=== PATIENT | male | born 1990 | race Two or more races ===

== ENCOUNTER 2018-06-27 22:29 | Emergency (ER) | payer BC, MEDICAID, SELFPAY ==
[~2018-06-27] VITALS: Ht 177.8 cm; Wt 98.2 kg
[2018-06-27 22:34] VITALS: BP 131/83
--- NOTE | 2018-06-27 23:00 | NUR ---
pt to room from lobby
== END 2018-06-27 23:50 | disposition home or self-care (01) ==
LOC: ED 23:05
DX: R07.89 Other chest pain (principal); F41.1 Generalized anxiety disorder; K21.9 Gastro-esophageal reflux disease without esophagitis
CPT/HCPCS: 93005; 99283